=== PATIENT | male | born 1940 | race Caucasian/White ===

== ENCOUNTER 2020-04-20 16:21 | Emergency (ER) | payer OTHER ==
[~2020-04-20] VITALS: Ht 175.3 cm; Wt 75.0 kg
[2020-04-20 18:03] LABS: BASOPHILS % (AUTO) 1 % (0-1); EOSINOPHILS % (AUTO) 0 % (1-7); LYMPHOCYTES % (AUTO) 10 % (22-44); MEAN CORPUSCULAR HEMOGLOBIN 27.3 pg (27.5-34.5); MEAN CORPUSCULAR HGB CONC 32.8 g/dL (33.2-36.2); MEAN PLATELET VOLUME 7.5 fL (7.4-10.4); MONOCYTES % (AUTO) 6 % (2-9); NEUTROPHILS % (AUTO) 83 % (42-75); PLATELET COUNT 275 x10^3/uL (130-400); RED BLOOD COUNT 4.96 x10^6/uL (4.38-5.82); RED CELL DISTRIBUTION WIDTH 16.4 % (9.4-14.8)
[2020-04-20 18:08] VITALS: BP 176/71
[2020-04-20 18:14] LABS: ALBUMIN 3.6 g/dL (3.4-5.0); ANION GAP 3 mmol/L (5-15); CALCIUM 9.2 mg/dL (8.5-10.1); CHLORIDE 110 mmol/L (98-107); CREATININE 0.88 mg/dL (0.7-1.3)
[2020-04-20 18:21] LABS: TROPONIN I < 0.015 ng/mL (0.000-0.045)
[2020-04-20 18:30] LABS: MD SCAN
--- NOTE | 2020-04-20 18:48 | NUR ---
PT'S DAUGHTER MEL [phone].
--- NOTE | 2020-04-20 19:03 | NUR ---
REPORT TO DAMON CAREY.
== END 2020-04-20 20:08 | disposition home or self-care (01) ==
LOC: ED 17:33
DX: R56.9 Unspecified convulsions (principal); R55 Syncope and collapse; E78.00 Pure hypercholesterolemia, unspecified; I45.10 Unspecified right bundle-branch block
CPT/HCPCS: 36415; 71045; 80048; 80185; 82040; 84484; 85025; 93005; 99283